=== PATIENT | female | born 1980 | race Two or more races ===

== ENCOUNTER 2021-10-19 06:29 | Emergency (ER) | payer MEDICAID, OTHER ==
[~2021-10-19] VITALS: Ht 149.9 cm; Wt 54.4 kg
[2021-10-19] MEDS ORDERED: ONDANSETRON HCL 4 MG/2 ML VIAL IV ONE (08:30)
[2021-10-19] MEDS ORDERED: MORPHINE SULFATE 4 MG/ML SYR/VIAL IV ONE (08:30)
[2021-10-19] MEDS ORDERED: BACL10TA PO (09:50)
[2021-10-19] MEDS ORDERED: IBUP800T27 PO (09:50)
[2021-10-19 09:58] VITALS: BP 133/87
== END 2021-10-19 09:58 | disposition home or self-care (01) ==
LOC: ER 06:29 → EDBD 06:29 → ER 09:58
DX: S76.011A Strain of muscle, fascia and tendon of right hip, initial encounter (principal); G89.4 Chronic pain syndrome; Z79.1 Long term (current) use of non-steroidal anti-inflammatories (NSAID); Z79.899 Other long term (current) drug therapy; X58.XXXA Exposure to other specified factors, initial encounter; Y93.89 Activity, other specified; Y92.89 Other specified places as the place of occurrence of the external cause; Y99.8 Other external cause status
CPT/HCPCS: 73502; 96374; 96375; 99284; J2270; J2405

== ENCOUNTER 2023-01-04 20:41 | Emergency (ER) | payer MEDICAID ==
[~2023-01-04] VITALS: Ht 149.9 cm; Wt 55.4 kg
[~2023-01-04 20:41] MED LIST: BACL10TA PO; IBUP-1456 PO
[2023-01-04 21:15] VITALS: BP 130/85
[2023-01-04 21:30] VITALS: RESP 19; O2SAT 98
[2023-01-04] MEDS ORDERED: ALBUTEROL SULF 2.5 MG/0.5ML(0.5%) NEB SOLN NEB ONE (21:45)
[2023-01-04] MEDS ORDERED: IPRATROPIUM BROM 0.5 MG/2.5ML INH SOL NEB ONE (21:45)
[2023-01-04 22:27] LABS: Basophils # (auto) 0 10 ^3/uL (0-0.2); Basophils % (auto) 0.1 % (0.0-2.0); Eosinophils # (auto) 0.2 10 ^3/uL (0-0.8); Eosinophils % (auto) 1.9 % (0.0-7.0); Hematocrit 35.7 % (36.0-46.0); Hemoglobin 11.6 g/dL (12.2-16.2); Lymphocytes # (auto) 1.7 10 ^3/uL (0.4-5.4); Lymphocytes % (auto) 14.8 % (10.0-50.0); Mean Corpuscular Hemoglobin 25.1 pg (28.0-32.0); Mean Corpuscular Hgb Conc. 32.4 g/dL (32.0-36.0); Mean Corpuscular Volume 77.4 fL (80.0-100.0); Monocytes # (auto) 0.8 10 ^3/uL (0-1.3); Monocytes % (auto) 6.8 % (0.0-12.0); Neutrophils # (auto) 8.9 10 ^3/uL (1.6-8.6); Neutrophils % (auto) 76.4 % (37.0-80.0); Red Blood Cells 4.61 10^6/uL (4.0-5.20); White Blood Cell 11.6 10^3/uL (4.4-10.8)
[2023-01-04 22:42] LABS: INR 0.99 (0.9-1.15); Partial Thromboplastin Time 28.7 SEC (24.5-34.5); Prothrombin Time 10.4 sec (9.3-11.8)
[2023-01-04 22:46] LABS: Alanine Aminotransferase 15 U/L (7-40); Albumin 4.3 g/dL (3.2-4.8); Alkaline Phosphatase 74 U/L (46-116); Anion Gap 4.6 (5-15); Aspartate Aminotransferase 13 U/L (13-40); BUN/Creatinine Ratio 16.5 (10.0-20.0); Blood Urea Nitrogen 15 mg/dL (9-23); Calcium 9.5 mg/dL (8.7-10.4); Carbon Dioxide 27.4 mmol/L (20-30); Chloride 107 mmol/L (98-107); Glucose 108 mg/dL (74-106); Potassium 3.7 mmol/L (3.5-5.1); Sodium 139 mmol/L (136-145)
[2023-01-04 22:47] LABS: Bilirubin, Total 0.3 mg/dL (0.2-1.0); Total Protein 7.3 g/dL (5.7-8.2)
[2023-01-05] MEDS ORDERED: DexAMETHasone SOD PHOS 10MG/1ML VIAL INJ IM ONE (00:30)
[2023-01-05] MEDS ORDERED: cefTRIAXone SOD 1,000 MG VL IM ONE (00:30)
[2023-01-05 00:49] VITALS: PULSE 100
[2023-01-05] MEDS ORDERED: BENZ200C64 PO (00:49)
[2023-01-05] MEDS ORDERED: CLIN300C70 PO (00:49)
[2023-01-05] MEDS ORDERED: PRED20TA2 PO (00:49)
[2023-01-05] MEDS ORDERED: ALBUAER3 IN (00:49)
== END 2023-01-05 02:27 | disposition home or self-care (01) ==
LOC: ER 20:41
DX: J20.9 Acute bronchitis, unspecified (principal); J03.90 Acute tonsillitis, unspecified; R07.89 Other chest pain; R06.02 Shortness of breath
CPT/HCPCS: 36415; 71045; 80053; 83735; 83880; 84484; 85025; 85610; 85730; 93005; 94640; 99285; J7644